=== PATIENT | female | born 1965 | race Caucasian/White ===

== ENCOUNTER 2024-04-19 16:34 | Emergency (ER) | payer BC, SELFPAY ==
[2024-04-19 16:41] VITALS: BP 121/68; PULSE 84; TEMP 37.4; O2SAT 98; BMI 26.2
--- NOTE | 2024-04-19 16:52 | ED_ITS ---
HPI - URI/Sore Throat General Chief Complaint: Upper Respiratory Infection Stated Complaint: FEVER, COUGH Time Seen by Provider: 04/19/24 16:48 Source: patient Limitations: no limitations History of Present Illness HPI Narrative: 58 year old female presents to the ED for fever, cough, congestion, body aches, sore throat. Denies SOB, N/V/D. Onset was 04/17/24. She has been taking Motrin for her fever; states she is not supposed to take Tylenol with her other medication. She did take Dayquil once without relief. Related Data Home Medications ?Medication ?Instructions ?Recorded ?Confirmed methimazole 5 mg tablet 5 mg PO DAILY 04/19/24 04/19/24 Previous Rx's ?Medication ?Instructions ?Recorded benzonatate 200 mg capsule 200 mg PO TID PRN cough #20 caps 04/19/24 guaifenesin 600 mg tablet, 600 mg PO BID PRN congestion #10 04/19/24 extended release 12 hr (Mucinex) tabs prednisone 20 mg tablet 40 mg (2 x 20 mg) PO DAILY 5 days 04/19/24 #10 tabs Allergies Allergy/AdvReac Type Severity Reaction Status Date / Time No Known Drug Allergies Allergy Verified 04/19/24 16:39 Review of Systems ROS Constitutional Reports: fever and chills Ears, nose, mouth, and throat Reports: throat pain, nasal discharge and nasal congestion; Denies: neck pain, ear pain or ear discharge Cardiovascular Denies: chest pain Respiratory Reports: cough; Denies: shortness of breath or wheezing Gastrointestinal Denies: abdominal pain, nausea, vomiting or diarrhea Musculoskeletal Denies: back pain or neck pain Integumentary/Breast Denies: rash PFSH PFSH Social History Little interest or pleasure in doing things: not at all Feeling down, depressed, or hopeless: not at all Exam Constitutional Vital Signs, click to edit/add: Last Vital Signs Temp 99.4 F 04/19/24 16:41 Pulse 84 04/19/24 16:41 Resp 18 04/19/24 16:41 BP 121/68 04/19/24 16:41 Pulse Ox 98 04/19/24 16:41 O2 Del Method Room Air 04/19/24 16:41 Common normals: no apparent distress and oriented x3 General appearance: cooperative HENMT Head and scalp: normal to inspection Nose: nasal discharge External ear: external ears normal External auditory canal: EACs normal Mouth: oral and palatal mucosa normal and lip normal Throat: uvula midline and posterior oropharynx abnormal erythema; no edema and no exudates Eye Common normals: conjunctivae normal and no scleral icterus Respiratory Common normals: normal respiratory effort and clear to auscultation bilaterally Effort & inspection: able to speak in complete sentences and symmetric chest movement Cardio Common normals: regular rate and regular rhythm Neuro Common normals: oriented x3 and moves all extremities Sensorium/orientation: awake and alert Course Vital Signs Vital signs: Vital Signs Temperature 99.4 F 04/19/24 16:41 Pulse Rate 84 04/19/24 16:41 Respiratory Rate 18 04/19/24 16:41 Blood Pressure 121/68 04/19/24 16:41 Pulse Oximetry 98 04/19/24 16:41 Oxygen Delivery Method Room Air 04/19/24 16:41 Temperature 99.4 F 04/19/24 16:41 Pulse Rate 84 04/19/24 16:41 Respiratory Rate 18 04/19/24 16:41 Blood Pressure 121/68 04/19/24 16:41 Pulse Oximetry 98 04/19/24 16:41 Oxygen Delivery Method Room Air 04/19/24 16:41 MDM - URI/Sore Throat MDM Narrative Medical decision making narrative: Covid-19, influenza, and strep were negative. Chest x-ray was negative for acute findings. Findings were discussed. Prescriptions were provided for prednisone, tessalon perles, and mucinex. Follow up with pcp for a recheck, further evaluation and treatment. Differential Diagnosis Differential diagnosis: Likely upper respiratory infection, viral infection, bronchitis, influenza and other (strep, Covid-19) Medical Records Attestation: I reviewed the patient's medical records. Lab Data Attestation: I reviewed the patient's lab results. Labs: Lab Results 04/19/24 Range/Units 16:50 Influenza Type A Ag Negative Influenza Type B Ag Negative SARS-CoV-2 Ag (CV2AG) Negative (NEGATIVE) Streptococcus Screen Negative Imaging Data Chest x-ray: Attestation: I have reviewed the pertinent imaging results. Radiologist's impression: ITS Impressions Chest X-Ray 04/19/24 17:17 IMPRESSION: No acute infiltrate or evidence of cardiac decompensation. Electronically authenticated by: YOLANDA HERNANDEZ Date: 04/19/2024 18:08 Discharge Plan Discharge Chief Complaint: Upper Respiratory Infection Clinical Impression: Upper respiratory infection, viral Patient Disposition: Home, Self-Care Time of Disposition Decision: 18:14 Condition: Good Mode of Transportation: Private Vehicle Prescriptions / Home Meds: New guaifenesin [Mucinex] 600 mg tablet extended release 12hr 600 mg PO BID PRN (Reason: congestion) Qty: 10 0RF benzonatate 200 mg capsule 200 mg PO TID PRN (Reason: cough) Qty: 20 0RF prednisone 20 mg tablet 40 mg PO DAILY 5 Days Qty: 10 0RF No Action methimazole 5 mg tablet 5 mg PO DAILY Patient Comments: wednesday, , wednesday Print Language: [place] Instructions: Upper Respiratory Infection (ED), Viral Syndrome (ED) Additional Instructions: Return to the ER for worsening symptoms. Referrals: Physician,Non-Staff, MD [Physician] - 1 week
[2024-04-19 17:12] LABS: Influenza Virus A Antigen Negative; Influenza Virus B Antigen Negative; Internal Control Within Normal Limits; Strep A Antigen Screen Negative
[2024-04-19 17:13] LABS: Internal Control Within Normal Limits; SARS-CoV-2 Ag NEGATIVE (NEGATIVE)
--- NOTE | 2024-04-19 17:17 | XR_ITS ---
The [address] [address] Patient Name: USHA LOTT MRN: [id number] date: 1965 Sex: F Assigned Patient Location: ED.MAIN Current Patient Location: ER Accession/Order Number: [id number] Exam Date: 04/19/2024 17:31 Report Date: 04/19/2024 18:08 At the request of: DAKSHA ANTONIO Procedure: XR chest 1V EXAM: XR chest 1V at 1723 hours HISTORY: cough COMPARISON: None. TECHNIQUE: AP upright portable chest x-ray FINDINGS: The heart is not enlarged and the vasculature is not distended. No acute infiltrate, effusion or pneumothorax is identified. The osseous structures are grossly intact. XR/XR chest 1V IMPRESSION: No acute infiltrate or evidence of cardiac decompensation. Electronically authenticated by: YOLANDA HERNANDEZ Date: 04/19/2024 18:08
== END 2024-04-19 18:26 | disposition home or self-care (01) ==
PROVIDERS: Nurse Practitioner Family; Emergency Provider Emergency Medicine; PCP Internal Medicine
DX: J06.9 Acute upper respiratory infection, unspecified (principal)
CPT/HCPCS: 71045; 87070; 87804; 87811; 87880; 99285